=== PATIENT | female | born 1990 | race Caucasian/White ===

== ENCOUNTER 2016-08-23 23:49 | Emergency (ER) | payer BC, OTHER ==
[2016-08-24] MEDS ORDERED: ONDANSETRON 4 MG VIAL ONE (03:05)
[2016-08-24] MEDS ORDERED: SODIUM CHLORIDE 0.9% 1,000 ML ONE (03:05)
== END 2016-08-24 04:54 | disposition home or self-care (01) ==
LOC: ER 23:49
CPT/HCPCS: 36415; 80053; 81001; 83690; 84703; 85025; 96361; 96374